=== PATIENT | male | born 1995 | race Two or more races ===

== ENCOUNTER 2024-11-28 01:09 | Emergency (ER) | payer MEDICAID, OTHER ==
[~2024-11-28] VITALS: Ht 167.6 cm; Wt 107.4 kg
--- NOTE | 2024-11-28 01:41 | ED.PDOC ---
GI ASSESSMENT HPI Comments C/C of generalized abdominal pain s/p drinking with assocaited nausea and vomiting. Pt admits to daily beer drinking. VSS. LAROSE. Denies PMH. Time Seen by MD: 01:20 Reviewed Notes: Nurses Notes, Medications, Allergies Allergies: Coded Allergies: NO KNOWN ALLERGIES (Unverified , 11/28/24) Information Source: Patient Past Medical History PAST MEDICAL HISTORY: Denies Surgical History: Denies all surgeries Family History Family History: Reviewed,noncontributory to illness Social History Smoker: Non-Smoker Alcohol: Heavy Drugs: Denies Drug Use Constitutional: denies: chills, diaphoresis, fatigue, fever, malaise, sweats, weakness, others EENTM: denies: blurred vision, double vision, ear bleeding, ear discharge, ear drainage, ear pain, ear ringing, eye pain, eye redness, hearing loss, mouth pain, mouth swelling, nasal discharge, nose bleeding, nose congestion, nose pain, photophobia, tearing, throat pain, throat swelling, voice changes, others Respiratory: denies: cough, hemoptysis, orthopnea, SOB at rest, shortness of breath, SOB with excertion, stridor, wheezing, others Cardiovascular: denies: chest pain, dizzy spells, diaphoresis, Dyspnea on exertion, edema, irregular heart beat, left arm pain, lightheadedness, palpitations, PND, syncope, others Gastrointestinal: reports: abdominal pain, nausea, vomiting; denies: abdomen distended, blood streaked bowels, constipated, diarrhea, dysphagia, difficulty swallowing, hematemesis, melena, poor appetite, poor fluid intake, rectal bleeding, others Genitourinary: denies: burning, dysuria, flank pain, frequency, hematuria, incontinence, penile discharge, penile sore, pain, testicle pain, testicle swelling, urgency, others Neurological: denies: dizziness, fainting, headache, left sided numbness, left sided weakness, numbness, paresthesia, pre-existing deficit, right sided numbness, right sided weakness, seizure, speech problems, tingling, tremors, weakness, others Musculoskeletal: denies: back pain, gout, joint pain, joint swelling, muscle pain, muscle stiffness, neck pain, others Integumetry: denies: bruises, change in color, change in hair/nails, dryness, laceration, lesions, lumps, rash, wounds, others Allergic/Immunocompromised: denies: Difficulty Healing, Frequent Infections, Hives, Itching, others Hematologic/Lymphatic: denies: anemia, blood clots, easy bleeding, easy bruising, swollen glands, others Endocrine: denies: excessive hunger, excessive sweating, excessive thirst, excessive urination, flushing, intolerance to cold, intolerance to heat, unexplained weight gain, unexplained weight loss, others Psychiatric: denies: anxiety, bipolar disorder, depression, hopeless, panic disorder, schizophrenia, sleepless, suicidal, others Physical Exam General Appearance: No Apparent Distress, Normal HEENT: Pharynx Normal Neck: Full Range of Motion, Non-Tender Respiratory: Lungs Clear, No Respiratory Distress, Normal Breath Sounds Cardiovascular: No Edema, No JVD, No Murmur, No Gallop, Normal Peripheral Pulses, Regular Rate/Rhythm Breast Exam: Deferred Gastrointestinal: Epigastric (TENDERNESS ), No Organomegaly, Non Tender, No Pulsatile Mass, Normal Bowel Sounds, Soft Genitalia: Deferred Pelvic: Deferred Rectal: Deferred Extremities: Normal range of motion Musculoskeletal : Apperance: Normal Neurologic: Alert, No Motor Deficits, Normal Affect, Normal Mood, No Sensory Deficits Cerebellar Function: Normal Reflexes: Normal Skin: Dry, Normal Color, Warm Lymphatic: No Adenopathy Was a procedure done? Was a procedure done?: No GI differential Dx Differential Diagnosis: Bowel Obstruction, Cholangitis, Cholecystitis, Gastroenteritis, GI hemorrhage, Inflammatory BD, Bacterial, Parasitic, Viral X-Ray, Labs, Meds, VS Vital Signs Date Time Temp Pulse Resp B/P (MAP) Pulse Ox O2 Delivery O2 Flow Rate FiO2 11/28/24 01:09 97.4 99 20 135/77 (96) 99 97.4 Lab Test 11/28/24 01:45 Range/Units White Blood Count 14.2 H 4.4-10.8 10^3/uL Red Blood Count 5.88 4.5-5.90 10^6/uL Hemoglobin 16.6 13.5-17.5 g/dL Hematocrit 48.6 41.0-53.0 % Mean Corpuscular Volume 82.7 80.0-100.0 fL Mean Corpuscular Hemoglobin 28.2 28.0-32.0 pg Mean Corpuscular Hemoglobin Concent 34.1 32.0-36.0 g/dL Red Cell Distribution Width 13.3 11.8-14.3 % Platelet Count 377 140-450 10^3/uL Mean Platelet Volume 7.2 6.9-10.8 fL Neutrophils (%) (Auto) 87.3 H 37.0-80.0 % Lymphocytes (%) (Auto) 8.7 L 10.0-50.0 % Monocytes (%) (Auto) 3.5 0.0-12.0 % Eosinophils (%) (Auto) 0.2 0.0-7.0 % Basophils (%) (Auto) 0.3 0.0-2.0 % Neutrophils # (Auto) 12.4 H 1.6-8.6 10 ^3/uL Lymphocytes # (Auto) 1.2 0.4-5.4 10 ^3/uL Monocytes # (Auto) 0.5 0-1.3 10 ^3/uL Eosinophils # (Auto) 0 0-0.8 10 ^3/uL Basophils # (Auto) 0 0-0.2 10 ^3/uL Nucleated Red Blood Cells 0.0 % Sodium Level 139 136-145 mmol/L Potassium Level 3.9 3.5-5.1 mmol/L Chloride Level 101 98-107 mmol/L Carbon Dioxide Level 25 20-31 mmol/L Anion Gap 13 5-15 Blood Urea Nitrogen 5 L 9-23 mg/dL Creatinine 1.06 0.700-1.30 mg/dL Glomerular Filtration Rate Calc 99 >90 mL/min BUN/Creatinine Ratio 4.7 L 10.0-20.0 Serum Glucose 192 H 74-106 mg/dL Calcium Level 9.5 8.7-10.4 mg/dL Total Bilirubin 0.5 0.2-1.0 mg/dL Aspartate Amino Transferase (AST) 36 H <34 U/L Alanine Aminotransferase (ALT) 63 H 7-40 U/L Alkaline Phosphatase 110 46-116 U/L Total Protein 8.2 5.7-8.2 g/dL Albumin 5.0 H 3.2-4.8 g/dL Lipase 44 12-53 U/L Current Medications Medications (Trade) Dose Ordered Sig/Tim Route Start Time Stop Time Status Last Admin Al Hydrox/Mg Hydrox/Simethicone (Maalox Plus) 30 ml ONCE ONCE PO 11/28/24 01:45 11/28/24 01:46 DC 11/28/24 02:13 Lidocaine HCl (Xylocaine 2% Viscous) 10 ml ONCE ONCE MT 11/28/24 01:45 11/28/24 01:46 DC 11/28/24 02:13 Belladonna Alkaloids/ Phenobarbital ( Elixir) 5 ml ONCE ONCE PO 11/28/24 01:45 11/28/24 01:46 DC 11/28/24 02:13 X-Ray, Labs, Meds, VS Comment CBC SLIGHT BUMP IN WBCS. CMP LIPASE WITHIN NORMAL LIMITS. PATIENT WAS GIVEN A GI COCKTAIL REPORTS ALMOST COMPLETE RELIEF OF HIS PAIN, DOES REPORTS SOME NAUSEA AND VOMITING PATIENT GIVEN 4 MG IM OF ZOFRAN ABLE TO TOLERATE FLUIDS STARTED ON PROTONIX 40 MG P.O.. THIS IS LIKELY ESOPHAGITIS SECONDARY TO ALCOHOL ABUSE AND REFLUX. SCRIPT CARAFATE TWICE DAILY TIMES 10 DAYS AND PROTONIX 40 MG B.I.D. X2 WEEKS. ADVISED TO REFRAIN FROM ALCOHOL SPICY FOOD. ADVISED TO FOLLOW UP WITH HIS PCP IN 2-3 DAYS CONSIDER FURTHER TESTING SUCH H PYLORI CONSIDER REFERRAL TO GI FOR AN ENDOSCOPY IF SYMPTOMS PERSIST. ADVISED TO TAKE MEDICATIONS PRESCRIBED SIDE EFFECTS DISCUSSED. ER RETURN PRECAUTIONS GIVEN PATIENT INDICATES UNDERSTANDING AGREES WITH DISCHARGE PLAN OF CARE. Time of 1ST Reevaluation: 01:40 Reevaluation 1ST: Unchanged Time of 2ND Reevaluation: 03:28 Reevaluation 2ND: Improved Patient Education/Counseling: Diagnosis, Treatment, Prognosis, Need For Follow Up Family Education/Counseling: Diagnosis, Treatment, Prognosis, Need For Follow Up Departure 1 Departure Time of Disposition: 03:32 Impression: Primary Impression: Esophagitis, reflux Qualified Codes: K21.00 - Gastro-esophageal reflux disease with esophagitis, without bleeding Disposition: 01 HOME / SELF CARE / HOMELESS Condition: Stable e-Prescriptions Sucralfate (Carafate) 1 Gm/10 Ml Simona 10 ML PO BID for 10 Days, #200 ML Prov: HUGO OLIVAS 11/28/24 Pantoprazole Sodium Sesquihydr (Protonix) 40 Mg Tab 40 MG PO BID for 14 Days, #28 TAB Prov: HUGO OLIVAS 11/28/24 Discharged With: Relative (Mother) Critical Care Note Critical Care Time?: No Stability Stability form required: No HUGO OLIVAS Nov 28, 2024 01:41
[2024-11-28 01:52] LABS: Basophils # (auto) 0 10 ^3/uL (0-0.2); Basophils % (auto) 0.3 % (0.0-2.0); Eosinophils # (auto) 0 10 ^3/uL (0-0.8); Eosinophils % (auto) 0.2 % (0.0-7.0); Hematocrit 48.6 % (41.0-53.0); Hemoglobin 16.6 g/dL (13.5-17.5); Lymphocytes # (auto) 1.2 10 ^3/uL (0.4-5.4); Lymphocytes % (auto) 8.7 % (10.0-50.0); Mean Corpuscular Hemoglobin 28.2 pg (28.0-32.0); Mean Corpuscular Hgb Conc. 34.1 g/dL (32.0-36.0); Mean Corpuscular Volume 82.7 fL (80.0-100.0); Monocytes # (auto) 0.5 10 ^3/uL (0-1.3); Monocytes % (auto) 3.5 % (0.0-12.0); Neutrophils # (auto) 12.4 10 ^3/uL (1.6-8.6); Neutrophils % (auto) 87.3 % (37.0-80.0); Platelet Count (auto) 377 10^3/uL (140-450); Red Blood Cells 5.88 10^6/uL (4.5-5.90); Red Cell Distribution Width 13.3 % (11.8-14.3); White Blood Cell 14.2 10^3/uL (4.4-10.8)
[2024-11-28 02:09] LABS: Alkaline Phosphatase 110 U/L (46-116); Anion Gap 13 (5-15); BUN/Creatinine Ratio 4.7 (10.0-20.0); Calcium 9.5 mg/dL (8.7-10.4); Carbon Dioxide 25 mmol/L (20-31); Chloride 101 mmol/L (98-107); Lipase 44 U/L (12-53); Potassium 3.9 mmol/L (3.5-5.1); Sodium 139 mmol/L (136-145); Total Protein 8.2 g/dL (5.7-8.2)
[2024-11-28 02:10] LABS: Alanine Aminotransferase 63 U/L (7-40); Aspartate Aminotransferase 36 U/L (<34); Bilirubin, Total 0.5 mg/dL (0.2-1.0); Blood Urea Nitrogen 5 mg/dL (9-23); Glucose 192 mg/dL (74-106)
[2024-11-28] MEDS: LIDOCAINE VISCOUS 2% 15ML UD MT ONE (02:13)
[2024-11-28] MEDS: DONNATAL 5ml ORAL Elix (BELLADONNA ALK-PHENOBARB) PO ONE (02:13)
[2024-11-28] MEDS: MAALOX PLUS or MAALOX 30 ML PO ONE (02:13)
[2024-11-28] MEDS ORDERED: PANT40TA2 PO (03:32)
[2024-11-28] MEDS ORDERED: SUCR1SUS5 PO (03:32)
[2024-11-28] MEDS: PANTOPRAZOLE 40 MG TAB PO ONE (04:07)
[2024-11-28] MEDS: ONDANSETRON HCL 4 MG/2 ML VIAL IM ONE (04:07)
[2024-11-28 04:12] VITALS: BP 131/95; PULSE 80; RESP 19; TEMP 97.9
[2024-11-28 04:13] VITALS: O2SAT 98
== END 2024-11-28 04:18 | disposition home or self-care (01) ==
LOC: ER 01:09
DX: K21.00 Gastro-esophageal reflux disease with esophagitis, without bleeding (principal)
CPT/HCPCS: 36415; 80053; 83690; 85025; 96372; 99284; J2405